=== PATIENT | female | born 1955 | race Caucasian/White ===

== ENCOUNTER → 2016-09-06 | Outpatient (CLI) | payer MEDICARE, MEDICAID ==
--- NOTE | 2016-09-09 09:08 | SLEEPCENT ---
DATE OF PROCEDURE: 09/06/2016 REQUESTING PROVIDER: Dr. Morrison INTERPRETATION: Nocturnal polysomnography was performed for the titration of pressure therapy in this patient with obstructive sleep apnea syndrome, apnea-hypopnea index of 7.5. For testing, a [employer]Med Quattro full face mask of extra small size was used, 4 cm of water pressure were applied to the circuit and the lights were extinguished. 7 hours and 39 minutes of data were reviewed. There were 391 minutes of sleep identified. Sleep latency was prolonged at 38 minutes. Rapid eye movement (REM) latency was normal at 92 minutes. Sleep architecture was fairly good. There was evidence of REM rebound late in the study. With optimal pressure therapy, overall sleep efficiency was 86%. The patient's electrocardiogram (EKG) showed a sinus rhythm with an average heart rate of 82 beats per minute. Electroencephalogram (EEG) showed normal waveforms for awake and sleep. Respiratory events were fully palliated with a CPAP to a pressure of +6. CPAP tolerance was good. Oxygen saturations remained 90%+. Minimal limb activity was seen. IMPRESSION: 1. Obstructive sleep apnea syndrome (G47.33). RECOMMENDATIONS: Nightly use of pressure therapy at 6 cm of water.
== END ==
LOC: M SLEEP 20:25
PROVIDERS: ATTEND Internal Medicine Pulmonary Disease
DX: G47.33 Obstructive sleep apnea (adult) (pediatric) (principal)

== ENCOUNTER → 2018-01-07 | Outpatient (REF) | payer OTHER, MEDICAID, MEDICARE ==
[2018-01-07 14:00] LABS: APPEARANCE, URINE HAZY (CLEAR); BACTERIA, URINE AUTO 3+ (NEGATIVE); BILIRUBIN, URINE AUTO NEGATIVE (NEGATIVE); BLOOD, URINE BLOOD NEGATIVE (NEGATIVE); COLOR, URINE YELLOW (YELLOW); GLUCOSE, URINE (UA) AUTO NEGATIVE (NEGATIVE); KETONE, URINE AUTO NEGATIVE (NEGATIVE); LEUKOCYTE ESTERASE, URINE AUTO 1+ (NEGATIVE); NITRITE, URINE AUTO NEGATIVE (NEGATIVE); PROTEIN, URINE AUTO NEGATIVE (NEGATIVE); RBC, URINE AUTO 5 /HPF (0-3); SQUAMOUS EPITHELIAL CELL UR AU 6 /HPF (0-6); UROBILINOGEN, URINE AUTO 0.2 mg/dL (0.0-2.0); WBC, URINE AUTO 13 /HPF (0-3)
== END ==
LOC: M SMT 13:06
DX: N13.30 Unspecified hydronephrosis (principal); N39.0 Urinary tract infection, site not specified
CPT/HCPCS: 81001

== ENCOUNTER → 2022-05-27 | Outpatient (CLI) | payer MEDICARE, MEDICAID ==
[2022-05-27 18:21] LABS: FREE T4 1.15 NG/DL (0.76-1.46); RHEUMATOID FACTOR QUANT < 10.0 IU/ML (<15.0); THYROID STIMULATING HORMONE 0.227 uIU/ML (0.358-3.740); TOTAL PROTEIN 7.3 GM/DL (6.4-8.2)
[2022-05-27 18:59] LABS: VITAMIN B12 LEVEL > 2000 PG/ML (247-911)
[2022-05-27 19:00] LABS: FOLATE 6.2 NG/ML (>5.4)
== END ==
LOC: M PLALAB 13:19
PROVIDERS: ATTEND Psychiatry & Neurology Neurology
DX: G62.9 Polyneuropathy, unspecified (principal); R41.3 Other amnesia